=== PATIENT | male | born 1930 | race Caucasian/White ===

== ENCOUNTER 2016-06-02 14:35 | Outpatient (CLI) | payer MEDICARE | END 2016-06-02 14:36 | disposition home or self-care (01) | DX: Z79.01 Long term (current) use of anticoagulants (principal) ==

== ENCOUNTER 2016-06-20 13:54 | Outpatient (CLI) | payer MEDICARE | END 2016-06-20 13:55 | disposition home or self-care (01) | DX: Z79.01 Long term (current) use of anticoagulants (principal) ==

== ENCOUNTER 2016-07-25 13:22 | Outpatient (CLI) | payer MEDICARE | END 2016-07-25 13:23 | disposition home or self-care (01) | DX: Z79.01 Long term (current) use of anticoagulants (principal) ==

== ENCOUNTER 2016-08-08 07:58 | Outpatient (CLI) | payer MEDICARE | END 2016-08-08 07:59 | disposition home or self-care (01) | DX: I25.10 Atherosclerotic heart disease of native coronary artery without angina pectoris (principal) ==

== ENCOUNTER 2016-08-22 10:37 | Outpatient (CLI) | payer MEDICARE | END 2016-08-22 10:38 | disposition home or self-care (01) | DX: Z79.01 Long term (current) use of anticoagulants (principal) ==

== ENCOUNTER 2016-08-29 10:20 | Outpatient (CLI) | payer MEDICARE | END 2016-08-29 10:21 | disposition home or self-care (01) | DX: Z79.01 Long term (current) use of anticoagulants (principal) ==

== ENCOUNTER 2016-09-22 08:00 | Outpatient (CLI) | payer MEDICARE | END 2016-09-22 08:01 | disposition home or self-care (01) | DX: Z79.01 Long term (current) use of anticoagulants (principal) ==

== ENCOUNTER 2016-10-10 14:38 | Outpatient (CLI) | payer MEDICARE | END 2016-10-10 14:39 | disposition home or self-care (01) | LOC: LAB.F 14:38 | PROVIDERS: ATTEND Physician Assistant Medical | DX: Z79.01 Long term (current) use of anticoagulants (principal) | CPT/HCPCS: 85610 ==

== ENCOUNTER 2016-10-20 08:31 | Outpatient (CLI) | payer MEDICARE ==
--- NOTE | 2016-10-20 14:32 | MRI Report ---
EXAM: RIGHT SHOULDER MRI WITHOUT CONTRAST EXAM DATE: 10/20/2016 10:06 AM. CLINICAL HISTORY: Chronic right shoulder pain. Sudden worsening of pain with abduction. COMPARISON: X-ray March 2013. TECHNIQUE: Multiplanar, multisequence T1-weighted and fluid-sensitive sequences of the shoulder witho ut contrast. Other: None. FINDINGS: Acromioclavicular Region: The acromion is type II. There is moderate acromioclavicular joint osteoart hritis. There is fluid in the joint space. There is fluid in the subacromial bursa. Glenohumeral Region: There is superior subluxation of the humeral head with moderate thinning of the hyaline cartilage. The findings are consistent with mild osteoarthritis. There is a moderate-sized keith int effusion. Bone Marrow: No fracture, marrow edema or bone lesions. Labrum: The labrum is unremarkable on this nonarthrographic study. Musculature/Rotator Cuff: Complete rupture and atrophy of the supraspinatus tendon. There is increase d T2 signal in the infraspinatus tendon consistent with tendinosis. There is high-grade partial-thick ness tearing and partial atrophy of the infraspinatus. There is high-grade partial thickness tearing of both the deep and superficial fibers of subscapularis. Biceps Tendon: Complete rupture. Other: The subcutaneous tissues are unremarkable. IMPRESSION: 1. Chronic rupture and atrophy of supraspinatus. High-grade partial-thickness tearing and moderate at rophy of infraspinatus. 2. High-grade partial-thickness tear of subscapularis. Complete rupture of the long head of biceps. 3. Superior subluxation of the humeral head and mild glenohumeral osteoarthritis. 4. Moderate acromioclavicular osteoarthritis. [facility] MUSCULOSKELET[facility]OLOG[facility] SECTION Referring Provider Line: [phone] SITE ID: [id number]
== END 2016-10-20 08:32 | disposition home or self-care (01) ==
LOC: DI 08:31
PROVIDERS: ATTEND Physician Assistant Medical
DX: M19.011 Primary osteoarthritis, right shoulder (principal); S46.811A Strain of other muscles, fascia and tendons at shoulder and upper arm level, right arm, initial encounter; M62.511 Muscle wasting and atrophy, not elsewhere classified, right shoulder; S46.111A Strain of muscle, fascia and tendon of long head of biceps, right arm, initial encounter; S43.001A Unspecified subluxation of right shoulder joint, initial encounter

== ENCOUNTER 2016-10-25 07:13 | Outpatient (CLI) | payer MEDICARE | END 2016-10-25 07:14 | disposition home or self-care (01) | LOC: LAB.F 07:13 | PROVIDERS: ATTEND Physician Assistant Medical | DX: Z79.01 Long term (current) use of anticoagulants (principal) | CPT/HCPCS: 85610 ==

== ENCOUNTER 2016-11-10 14:22 | Outpatient (CLI) | payer MEDICARE | END 2016-11-10 14:23 | disposition home or self-care (01) | LOC: LAB.F 14:22 | PROVIDERS: ATTEND Physician Assistant Medical | DX: Z79.1 Long term (current) use of non-steroidal anti-inflammatories (NSAID) (principal) | CPT/HCPCS: 85610 ==

== ENCOUNTER 2016-11-27 13:44 | Outpatient (CLI) | payer MEDICARE | END 2016-11-27 13:45 | disposition home or self-care (01) | LOC: LAB.F 13:44 | PROVIDERS: ATTEND Physician Assistant Medical | DX: Z79.01 Long term (current) use of anticoagulants (principal) | CPT/HCPCS: 85610 ==

== ENCOUNTER 2016-12-06 07:30 | Outpatient (CLI) | payer MEDICARE | END 2016-12-06 07:31 | disposition home or self-care (01) | LOC: LAB.F 07:30 | PROVIDERS: ATTEND Physician Assistant Medical | DX: Z79.01 Long term (current) use of anticoagulants (principal) | CPT/HCPCS: 85610 ==

== ENCOUNTER 2016-12-21 14:00 | Outpatient (CLI) | payer MEDICARE | END 2016-12-21 14:01 | disposition home or self-care (01) | LOC: LAB.F 14:00 | PROVIDERS: ATTEND Physician Assistant Medical | DX: Z79.01 Long term (current) use of anticoagulants (principal) | CPT/HCPCS: 85610 ==

== ENCOUNTER 2017-01-04 07:06 | Outpatient (CLI) | payer MEDICARE | END 2017-01-04 07:07 | disposition home or self-care (01) | LOC: LAB.F 07:06 | PROVIDERS: ATTEND Physician Assistant Medical | DX: Z79.01 Long term (current) use of anticoagulants (principal) | CPT/HCPCS: 85610 ==

== ENCOUNTER 2017-01-10 07:10 | Outpatient (CLI) | payer MEDICARE | END 2017-01-10 07:11 | disposition home or self-care (01) | LOC: LAB.F 07:10 | PROVIDERS: ATTEND Physician Assistant Medical | DX: Z79.01 Long term (current) use of anticoagulants (principal) | CPT/HCPCS: 85610 ==

== ENCOUNTER 2017-01-24 07:06 | Outpatient (CLI) | payer MEDICARE | END 2017-01-24 07:07 | disposition home or self-care (01) | LOC: LAB.F 07:06 | PROVIDERS: ATTEND Physician Assistant Medical | DX: Z79.01 Long term (current) use of anticoagulants (principal) | CPT/HCPCS: 85610 ==

== ENCOUNTER 2017-02-06 08:30 | Outpatient (CLI) | payer MEDICARE ==
[2017-02-06 12:13] LABS: CALCIUM 9.4 mg/dL (8.5-10.3); CREATININE 2.2 mg/dL (0.6-1.2); POTASSIUM 4.2 mmol/L (3.5-5.0)
== END 2017-02-06 08:31 | disposition home or self-care (01) ==
LOC: LAB.F 08:30
PROVIDERS: ATTEND Internal Medicine Cardiovascular Disease
DX: N18.4 Chronic kidney disease, stage 4 (severe) (principal)
CPT/HCPCS: 36415; 80048

== ENCOUNTER 2017-02-12 14:50 | Outpatient (CLI) | payer MEDICARE | END 2017-02-12 14:51 | disposition home or self-care (01) | LOC: LAB.F 14:50 | PROVIDERS: ATTEND Physician Assistant Medical | DX: R97.20 Elevated prostate specific antigen [PSA] (principal) | CPT/HCPCS: 36415; 84153 ==

== ENCOUNTER 2017-02-26 15:19 | Outpatient (CLI) | payer MEDICARE | END 2017-02-26 15:20 | disposition home or self-care (01) | LOC: LAB.F 15:19 | PROVIDERS: ATTEND Physician Assistant Medical | DX: Z79.01 Long term (current) use of anticoagulants (principal) | CPT/HCPCS: 85610 ==

== ENCOUNTER 2017-03-26 14:51 | Outpatient (CLI) | payer MEDICARE | END 2017-03-26 14:52 | disposition home or self-care (01) | LOC: LAB.F 14:51 | PROVIDERS: ATTEND Physician Assistant Medical | DX: Z79.01 Long term (current) use of anticoagulants (principal) | CPT/HCPCS: 85610 ==

== ENCOUNTER 2017-04-10 07:09 | Outpatient (CLI) | payer MEDICARE | END 2017-04-10 07:10 | disposition home or self-care (01) | LOC: LAB.F 07:09 | PROVIDERS: ATTEND Physician Assistant Medical | DX: Z79.01 Long term (current) use of anticoagulants (principal) ==

== ENCOUNTER 2017-04-26 10:16 | Outpatient (CLI) | payer MEDICARE | END 2017-04-26 10:17 | disposition home or self-care (01) | LOC: LAB.F 10:16 | PROVIDERS: ATTEND Physician Assistant Medical | DX: Z79.01 Long term (current) use of anticoagulants (principal) | CPT/HCPCS: 85610 ==

== ENCOUNTER 2017-05-07 10:35 | Outpatient (CLI) | payer MEDICARE ==
[2017-05-07 18:51] LABS: BILIRUBIN,URINE NEGATIVE (NEGATIVE)
[2017-05-07 19:18] LABS: CALCIUM 9.1 mg/dL (8.5-10.3); CREATININE 2.1 mg/dL (0.6-1.2); PHOSPHORUS 3.3 mg/dL (2.5-4.6); POTASSIUM 4.1 mmol/L (3.5-5.0)
[2017-05-07 19:21] LABS: WBC,URINE 0-3 /HPF (0-3)
== END 2017-05-07 10:36 | disposition home or self-care (01) ==
LOC: LAB.F 10:35
PROVIDERS: ATTEND Internal Medicine Nephrology
DX: E21.1 Secondary hyperparathyroidism, not elsewhere classified (principal); D64.9 Anemia, unspecified; I12.9 Hypertensive chronic kidney disease with stage 1 through stage 4 chronic kidney disease, or unspecified chronic kidney disease; N18.3 Chronic kidney disease, stage 3 (moderate)
CPT/HCPCS: 36415; 80069; 81001; 82570; 83970; 84156; 85014

== ENCOUNTER 2017-05-24 10:48 | Outpatient (CLI) | payer MEDICARE ==
--- NOTE | 2017-05-24 17:03 | XRAY Report ---
EXAM: CHEST RADIOGRAPHY EXAM DATE: 05/24/2017 04:16 PM. CLINICAL HISTORY: DYSPNEA. COMPARISON: None. TECHNIQUE: 2 views. FINDINGS: Lungs/Pleura: Hyperinflated lungs. Mild diffuse haziness. Small effusion on the right. No focal infil trates. No pneumothorax identified. Mediastinum: Mild cardiomegaly and venous congestion. Other: No compression fractures. Old scapular and rib fractures on the right. IMPRESSION: Mild cardiomegaly, venous congestion, lung haziness, and small right effusion concerning for CHF. [facility] The call report notification system was initiated by Dr. Alan Gross at 16:31 hrs on 05/24/17. The above findings were discussed with Fela Ahuja by Dr. Alan Gross at 17:01 hrs on 05/24/17. Referring Provider Line: [phone] SITE ID: [id number]
== END 2017-05-24 10:49 | disposition home or self-care (01) ==
LOC: LAB.F 10:48
PROVIDERS: ATTEND Physician Assistant Medical
DX: I51.7 Cardiomegaly (principal); I87.8 Other specified disorders of veins; J90 Pleural effusion, not elsewhere classified; R91.8 Other nonspecific abnormal finding of lung field; Z79.01 Long term (current) use of anticoagulants
CPT/HCPCS: 71020; 85610

== ENCOUNTER 2017-06-26 10:11 | Outpatient (CLI) | payer MEDICARE | END 2017-06-26 10:12 | disposition home or self-care (01) | LOC: LAB.F 10:11 | PROVIDERS: ATTEND Physician Assistant Medical | DX: Z79.01 Long term (current) use of anticoagulants (principal) | CPT/HCPCS: 85610 ==

== ENCOUNTER 2017-07-27 09:02 | Outpatient (CLI) | payer MEDICARE | END 2017-07-27 09:03 | disposition home or self-care (01) | LOC: LAB.F 09:02 | PROVIDERS: ATTEND Physician Assistant Medical | DX: Z79.01 Long term (current) use of anticoagulants (principal) | CPT/HCPCS: 85610 ==

== ENCOUNTER 2017-08-08 08:00 | Outpatient (CLI) | payer MEDICARE ==
[2017-08-08 17:50] LABS: CALCIUM 9.2 mg/dL (8.5-10.3); CREATININE 2.6 mg/dL (0.6-1.2)
== END 2017-08-08 08:01 ==
LOC: LAB.F 08:00
PROVIDERS: ATTEND Internal Medicine Cardiovascular Disease
DX: I25.10 Atherosclerotic heart disease of native coronary artery without angina pectoris (principal); I50.20 Unspecified systolic (congestive) heart failure
CPT/HCPCS: 36415; 80048

== ENCOUNTER 2017-08-24 11:16 | Outpatient (CLI) | payer MEDICARE | END 2017-08-24 11:17 | disposition home or self-care (01) | LOC: LAB.F 11:16 | PROVIDERS: ATTEND Physician Assistant Medical | DX: Z79.01 Long term (current) use of anticoagulants (principal) | CPT/HCPCS: 85610 ==

== ENCOUNTER 2017-09-10 08:57 | Outpatient (CLI) | payer MEDICARE ==
[2017-09-10 19:14] LABS: CALCIUM 9.5 mg/dL (8.5-10.3); CREATININE 2.3 mg/dL (0.6-1.2)
== END 2017-09-10 08:58 | disposition home or self-care (01) ==
LOC: LAB.F 08:57
PROVIDERS: ATTEND Internal Medicine Cardiovascular Disease
DX: I25.10 Atherosclerotic heart disease of native coronary artery without angina pectoris (principal); I50.20 Unspecified systolic (congestive) heart failure
CPT/HCPCS: 36415; 80048

== ENCOUNTER 2017-09-17 10:14 | Outpatient (CLI) | payer MEDICARE | END 2017-09-17 10:15 | disposition home or self-care (01) | LOC: LAB.F 10:14 | PROVIDERS: ATTEND Physician Assistant Medical | DX: Z79.01 Long term (current) use of anticoagulants (principal) | CPT/HCPCS: 85610 ==

== ENCOUNTER 2017-09-24 13:44 | Outpatient (CLI) | payer MEDICARE | END 2017-09-24 13:45 | disposition home or self-care (01) | LOC: LAB.F 13:44 | PROVIDERS: ATTEND Internal Medicine Cardiovascular Disease | DX: Z79.01 Long term (current) use of anticoagulants (principal); I25.10 Atherosclerotic heart disease of native coronary artery without angina pectoris; I50.20 Unspecified systolic (congestive) heart failure | CPT/HCPCS: 36415; 80048; 85610 ==

== ENCOUNTER 2017-09-28 13:00 | Outpatient (CLI) | payer MEDICARE ==
[2017-09-28 18:17] LABS: CREATININE 2.5 mg/dL (0.6-1.2); PHOSPHORUS 3.9 mg/dL (2.5-4.6)
== END 2017-09-28 13:01 | disposition home or self-care (01) ==
LOC: LAB.F 13:00
PROVIDERS: ATTEND Internal Medicine Nephrology
DX: E21.1 Secondary hyperparathyroidism, not elsewhere classified (principal); D64.9 Anemia, unspecified; N18.3 Chronic kidney disease, stage 3 (moderate)
CPT/HCPCS: 36415; 80069; 81001; 82570; 83970; 84156

== ENCOUNTER 2017-10-01 15:31 | Outpatient (CLI) | payer MEDICARE ==
[2017-10-01 19:14] LABS: BILIRUBIN,URINE NEGATIVE (NEGATIVE); GLUCOSE, URINE (UA) NEGATIVE (NEGATIVE); KETONES,URINE (UA) NEGATIVE (NEGATIVE); LEUKOCYTE ESTERASE, URINE MODERATE (NEGATIVE); NITRITE,URINE NEGATIVE (NEGATIVE); OCCULT BLOOD,URINE NEGATIVE (NEGATIVE); PROTEIN,URINE NEGATIVE (NEGATIVE); UROBILINOGEN,URINE 0.2 (NORMAL) E.U./dL (NORMAL)
[2017-10-01 19:21] LABS: CLARITY,URINE SL. CLOUDY (CLEAR)
[2017-10-01 19:40] LABS: BACTERIA,URINE Many /HPF (None Seen); CREATININE,URINE 58.3 mg/dL; PROTEIN/CREATININE RATIO,URINE 0.2 (<=0.2); RBC,URINE None Seen /HPF (0-5); SQUAMOUS EPITHELIAL CELL,UR FEW Squamous (<= Few)
== END 2017-10-01 15:32 | disposition home or self-care (01) ==
LOC: LAB.F 15:31
PROVIDERS: ATTEND Internal Medicine Nephrology
DX: E21.1 Secondary hyperparathyroidism, not elsewhere classified (principal); D64.9 Anemia, unspecified; N18.3 Chronic kidney disease, stage 3 (moderate)
CPT/HCPCS: 81001; 82570; 84156

== ENCOUNTER 2017-10-09 11:17 | Outpatient (CLI) | payer MEDICARE ==
[2017-10-09 17:54] LABS: CALCIUM 9.3 mg/dL (8.5-10.3); CREATININE 2.4 mg/dL (0.6-1.2)
== END 2017-10-09 11:18 | disposition home or self-care (01) ==
LOC: LAB.F 11:17
PROVIDERS: ATTEND Internal Medicine Cardiovascular Disease
DX: I25.10 Atherosclerotic heart disease of native coronary artery without angina pectoris (principal); I50.20 Unspecified systolic (congestive) heart failure
CPT/HCPCS: 36415; 80048

== ENCOUNTER 2017-10-23 10:28 | Outpatient (CLI) | payer MEDICARE | END 2017-10-23 10:29 | disposition home or self-care (01) | LOC: LAB.F 10:28 | PROVIDERS: ATTEND Physician Assistant Medical | DX: Z79.01 Long term (current) use of anticoagulants (principal) | CPT/HCPCS: 85610 ==

== ENCOUNTER 2017-10-30 08:00 | Outpatient (CLI) | payer MEDICARE | END 2017-10-30 08:01 | disposition home or self-care (01) | LOC: LAB.F 08:00 | PROVIDERS: ATTEND Physician Assistant Medical | DX: Z79.01 Long term (current) use of anticoagulants (principal) | CPT/HCPCS: 85610 ==

== ENCOUNTER 2017-11-05 11:15 | Outpatient (CLI) | payer MEDICARE | END 2017-11-05 11:16 | disposition home or self-care (01) | LOC: LAB.F 11:15 | PROVIDERS: ATTEND Internal Medicine | DX: I48.2 Chronic atrial fibrillation (principal); Z79.01 Long term (current) use of anticoagulants | CPT/HCPCS: 36415; 80048; 85610 ==

== ENCOUNTER 2017-11-05 19:25 | Emergency (ER) | payer MEDICARE ==
--- NOTE | 2017-11-05 20:48 | ED Physician Documentation ---
PD HPI BACK PAIN - Stated complaint Stated Complaint: BACK PX - Chief complaint Chief Complaint: Back Pain - History obtained from History obtained from: Patient - History of Present Illness Timing - onset: How many days ago (few days of pain, worse today. Gradual onset. Worse with movement.) Timing - duration: Days Timing - details: Gradual onset, Still present, Waxing and waning Location: Lower, Left Quality: Pain, Aching. No: Sharp, Tearing Associated symptoms: No: Fever, Weakness, Numbness Worsened by: Movement. No: Twisting Contributing factors: No: Lifting, Twisting, Trauma Similar symptoms before: Has not had sx before Recently seen: Emergency Dept, Admitted (had MN 2 months ago and had CHF last week, in [place] and had diuresis of 8 lbs of fluid. Breathing easier. Having pain in finger and elbow joints however, with some redness.) Review of Systems Constitutional: denies: Fever, Chills, Myalgias Nose: denies: Rhinorrhea / runny nose, Congestion Throat: denies: Sore throat Cardiac: denies: Chest pain / pressure Respiratory: reports: Dyspnea (improved after diuresis in hospital last week). denies: Cough GI: denies: Abdominal Pain, Nausea, Vomiting Skin: reports: Lesions (redness over right index MCP joint and right elbow, left foot.) Musculoskeletal: reports: Back pain Neurologic: denies: Focal weakness, Numbness PD PAST MEDICAL HISTORY - Past Medical History Past Medical History: Yes Cardiovascular: Hypertension, High cholesterol, MN Respiratory: None Neuro: None GI: GERD : Benign prostate hypertrophy, Retention Musculoskeletal: Gout, Other Other Past Medical History: Sciatica - Past Surgical History Past Surgical History: Yes General: Other - Present Medications Home Medications: Ambulatory Orders Medication Instructions Recorded Confirmed Atorvastatin [Lipitor] 11/05/17 Calcitriol 11/05/17 Clopidogrel [Plavix] 11/05/17 Dexamethasone [Decadron] 4 mg PO DAILY #5 tablet 11/05/17 HYDROcod/ACETAM 5/325 [[place] 5/325] 1 tab PO Q6H PRN #20 tablet 11/05/17 Isosorbide Mononitrate ER [Imdur] 11/05/17 Methocarbamol [Robaxin] 500 mg PO Q6H PRN #25 tablet 11/05/17 Metoprolol Succinate 11/05/17 Multivitamin [Multiple Vitamins] 11/05/17 Nitroglycerin 11/05/17 Omeprazole 11/05/17 Potassium Chloride 11/05/17 Torsemide 11/05/17 Warfarin [Coumadin] 11/05/17 amLODIPine [Norvasc] 11/05/17 - Allergies Allergies/Adverse Reactions: Allergies Allergy/AdvReac Type Severity Reaction Status Date / Time acetaminophen [From Tylenol] AdvReac Dizziness Verified 11/05/17 20:21 - Social History Does the pt smoke?: No Smoking Status: Never smoker Does the pt drink ETOH?: No Does the pt have substance abuse?: No - Immunizations Immunizations are current?: Yes PD ED PE NORMAL - Vitals Vital signs reviewed: Yes - General General: Alert and oriented X 3, No acute distress, Well developed/nourished - Neck Neck: Supple, no meningeal sign, No adenopathy - Cardiac Cardiac: RRR, No murmur - Respiratory Respiratory: No respiratory distress, Clear bilaterally (just faint crackles at bases) - Abdomen Abdomen: Soft, Non tender - Male Male : Deferred - Rectal Rectal: Deferred - Back Back: No CVA TTP, No spinal TTP, Other (tender left lower muscles and at SI joint area. No redness nor sores. ) - Derm Derm: Normal color, Warm and dry - Extremities Extremities: No edema, No calf tenderness / cord, Other (right index finger MCP and right elbow with tenderness and faint redness without warmth, could be c/w gout. Foot hurting but not examined. ) - Neuro Neuro: Alert and oriented X 3, No motor deficit, No sensory deficit, Normal speech, Other (good knee reflexes) Results - Vitals Vitals: Vital Signs - 24 hr 11/05/17 11/05/17 11/05/17 19:31 21:43 23:09 Temperature 37.1 C 36.7 C 36.2 C L Heart Rate 55 L 86 86 Respiratory 18 20 12 Rate Blood Pressure 91/60 106/68 92/68 O2 Saturation 95 96 92 Oxygen O2 Source Room air - Rads (name of study) KUB CT Radiology: Prelim report reviewed (no stones. atrophic kidney. prostate mass right side. diverticulosos without diverticulitis. ) PD MEDICAL DECISION MAKING - ED course Complexity details: reviewed results, re-evaluated patient (feeling much better with meds here. ), considered differential (seems muscular and CT normal without stones, mass, compressions. The hand and joint pains are likely gout exac s/p diuresis last week.), d/w patient - Sepsis Event Vital Signs: Vital Signs - 24 hr 11/05/17 11/05/17 11/05/17 19:31 21:43 23:09 Temperature 37.1 C 36.7 C 36.2 C L Heart Rate 55 L 86 86 Respiratory 18 20 12 Rate Blood Pressure 91/60 106/68 92/68 O2 Saturation 95 96 92 Oxygen O2 Source Room air Departure - Departure Disposition: Home, Self Care Clinical Impression: Left lumbar pain Qualifiers: Chronicity: acute Sciatica presence: with sciatica Sciatica laterality: sciatica of left side Qualified Code(s): M54.42 - Lumbago with sciatica, left side Condition: Stable Record reviewed to determine appropriate education?: Yes Instructions: ED Spasm Back No Trauma Follow-Up: Ankit Torres MD [Primary Care Provider] - Prescriptions: Dexamethasone [Decadron] 4 mg PO DAILY #5 tablet HYDROcod/ACETAM 5/325 [[place] 5/325] 1 tab PO Q6H PRN #20 tablet PRN Reason: Pain Methocarbamol [Robaxin] 500 mg PO Q6H PRN #25 tablet PRN Reason: Spasms Comments: Gait appears normal without any obvious cause for the pain. This would not eliminate musculoskeletal type pain. It does sound like muscular pain with irritation of the nerve causing it down the leg. Use Decadron anti- inflammatory for 5 more days daily. Robaxin muscle relaxant 3 times a day for stiffness and spasms. Add hydrocodone if needed for pain. Recheck if not improving over the next few days. Heat and gentle stretching for the areas good as well. Discharge Date/Time: 11/05/17 23:09
[2017-11-05] MEDS ORDERED: DEXAMETHASONE 10 MG/ML VIAL PO STA (21:02)
[2017-11-05] MEDS ORDERED: KETOROLAC 60 MG/2 ML VIAL IM STA (21:02)
[2017-11-05] MEDS ORDERED: HYDROcod/ACETAM 5/325 MG TABLET PO STA (21:02)
--- NOTE | 2017-11-05 22:18 | CT Preliminary Report ---
Exam: CT KUB IMPRESSION: 1. Atrophic kidneys without evidence of stone or hydronephrosis. There is a hyperdense subcentimeter right renal cyst which may be further characterized by ultrasound. 2. Trace right pleural effusion. 3. Small hiatal hernia. 4. Diverticulosis without diverticulitis. 5. Right prostate gland mass. Correlation with clinical findings advised. [facility] SITE ID: [id number]
--- NOTE | 2017-11-05 22:18 | CT Report ---
EXAM: CT ABDOMEN AND PELVIS (CT KUB) EXAM DATE: 11/05/2017 09:49 PM. CLINICAL HISTORY: Left low back pain to left abd. COMPARISONS: None. TECHNIQUE: Routine axial helical CT imaging was performed through the abdomen and pelvis without IV c ontrast. Reconstructions: Coronal and sagittal. In accordance with CT protocol optimization, one or more of the following dose reduction techniques w ere utilized for this exam: automated exposure control, adjustment of mA and/or KV based on patient s ize, or use of iterative reconstructive technique. FINDINGS: Lung Bases: Trace right pleural effusion and subpleural atelectatic changes. Enlarged heart. Right Kidney/Ureter: Atrophic kidney. There is an exophytic 8 mm cortical cyst at the lower pole. No stones or hydronephrosis. Left Kidney/Ureter: Markedly atrophic kidney. There is a 1.2 cm cyst. No stones or hydronephrosis. Other Solid Organs: Noncontrast images of the solid organs are grossly unremarkable. Gallbladder/Bile Ducts: Unremarkable. Peritoneal Cavity: Diverticulosis without evidence of diverticulitis. No small bowel obstruction. No free air or fluid collections. Pelvic Organs: Right prostate gland contour deformity with a bulging 3.5 x 3.2 cm mass. No pelvic lym phadenopathy. Multiple urinary bladder diverticula noted Vasculature: Tortuous, atherosclerotic aorta and iliac arteries. No aneurysm. Other: Diffuse lumbar spine disk related degenerative changes. No acute bony abnormality. IMPRESSION: 1. Atrophic kidneys without evidence of stone or hydronephrosis. There is a hyperdense subcentimeter right renal cyst which may be further characterized by ultrasound. 2. Trace right pleural effusion. 3. Small hiatal hernia. 4. Diverticulosis without diverticulitis. 5. Right prostate gland mass. Correlation with clinical findings advised. [facility] Referring Provider Line: [phone] SITE ID: [id number]
[2017-11-05 23:10] VITALS: BP 92/68
== END 2017-11-05 23:09 | disposition home or self-care (01) ==
LOC: ED 19:25
DX: M54.42 Lumbago with sciatica, left side (principal); I48.2 Chronic atrial fibrillation; Z79.01 Long term (current) use of anticoagulants; I10 Essential (primary) hypertension; E78.00 Pure hypercholesterolemia, unspecified; I25.2 Old myocardial infarction
CPT/HCPCS: 36415; 74176; 80048; 85610; 96372; 99283; A9270

== ENCOUNTER 2017-11-19 13:55 | Outpatient (CLI) | payer MEDICARE | END 2017-11-19 13:56 | disposition home or self-care (01) | LOC: LAB.F 13:55 | PROVIDERS: ATTEND Physician Assistant Medical | DX: Z79.01 Long term (current) use of anticoagulants (principal) | CPT/HCPCS: 85610 ==

== ENCOUNTER 2017-12-03 13:55 | Outpatient (CLI) | payer MEDICARE | END 2017-12-03 13:56 | disposition home or self-care (01) | LOC: LAB.F 13:55 | PROVIDERS: ATTEND Physician Assistant Medical | DX: Z79.01 Long term (current) use of anticoagulants (principal) | CPT/HCPCS: 85610 ==

== ENCOUNTER 2017-12-06 14:53 | Outpatient (CLI) | payer MEDICARE ==
[2017-12-06 18:05] LABS: CREATININE 2.3 mg/dL (0.6-1.2)
== END 2017-12-06 14:54 | disposition home or self-care (01) ==
LOC: LAB.F 14:53
PROVIDERS: ATTEND Physician Assistant Medical
DX: I25.10 Atherosclerotic heart disease of native coronary artery without angina pectoris (principal); I50.20 Unspecified systolic (congestive) heart failure
CPT/HCPCS: 36415; 80048; 85610

== ENCOUNTER 2017-12-10 14:35 | Outpatient (CLI) | payer MEDICARE | END 2017-12-10 14:36 | disposition home or self-care (01) | LOC: LAB.F 14:35 | PROVIDERS: ATTEND Physician Assistant Medical | DX: Z79.01 Long term (current) use of anticoagulants (principal) | CPT/HCPCS: 85610 ==